=== PATIENT | male | born 1985 | race Caucasian/White ===

== ENCOUNTER 2017-12-03 21:57 | Emergency (ER) | payer BC ==
[~2017-12-03] VITALS: Ht 167.6 cm; Wt 93.2 kg
[~2017-12-03 21:57] MED LIST: CIPRO250 M1 PO; FLOMAX PO; NORCO 325 MG-51 TAB PO
[2017-12-03] MEDS ORDERED: AUGMENTIN 875-1 EAC1 PO (22:23)
[2017-12-03 22:46] VITALS: BP 137/89
== END 2017-12-03 22:46 | disposition home or self-care (01) ==
LOC: ED 21:57
DX: H60.91 Unspecified otitis externa, right ear (principal); J01.90 Acute sinusitis, unspecified

== ENCOUNTER 2022-01-29 16:46 | Emergency (ER) | payer OTHER ==
[~2022-01-29] VITALS: Ht 167.6 cm; Wt 93.2 kg
[~2022-01-29 16:46] MED LIST changes: +AUGMENTIN 875-1 EAC1 PO
[2022-01-29 17:32] VITALS: BP 125/80
== END 2022-01-29 17:30 | disposition home or self-care (01) ==
LOC: ED 16:46
DX: S80.12XA Contusion of left lower leg, initial encounter (principal); W07.XXXA Fall from chair, initial encounter